=== PATIENT | female | born 1980 | race Caucasian/White ===

== ENCOUNTER 2017-09-21 08:52 | Emergency (ER) | payer MEDICARE ==
[2017-09-21 08:54] VITALS: BP 160/95; PULSE 93; RESP 20; TEMP 98.4; O2SAT 100
[2017-09-21] MEDS ORDERED: SODIUM CHLOR 0.9% 1000 ML INJ 1,000 ML IV ONE (09:29)
[2017-09-21] MEDS ORDERED: KETOROLAC TROMETHAMINE 30 MG/ML (IVP) VIAL IVP ONE (09:30)
[2017-09-21] MEDS ORDERED: PROCHLORPERAZINE INJ 10 MG/2 ML VIAL IVP ONE (09:30)
--- NOTE | 2017-09-21 09:35 | PD ---
HPI Chief Complaint: Headache Time Seen by Provider: 09:22 Travel History International Travel<30 days: No Contact w/Intl Traveler<30days: No Traveled to known affect area: No History of Present Illness HPI Examined in the presence of a female nurse at all times. This is a 37-year-old female who reports a history of migraines and epilepsy. She presents for evaluation. For the past 5 days she has had cough, myalgias, fatigue, occasional nosebleeds from the left nostril, sore throat. In addition she has had headache which she describes as piercing pain in the frontal and left parietal region which is constant, no aggravating or leading factors. This started 5 days ago and is gradually worsening. She reports a 21 year history of migraines on a monthly basis and this current headache feels like her typical migraine. Because of her additional symptoms of cough, myalgias and occasional nosebleeds, she presented here for further evaluation. She denies any nasal manipulation, denies putting any foreign bodies in her nose. She does occasionally use Flonase for seasonal allergies. She denies any objective fevers, rash, abdominal pain, nausea or vomiting, photophobia or phonophobia, dysuria, diarrhea. Denies any history of IV drug use. She has no other complaints at this time. [facility] Past Medical History Cancer: Yes (OVARIAN CANCER ) Diminished Hearing: No Headaches: Yes Migraines: Yes Seizures: Yes (EPILEPSY ) Tetanus Vaccination: Unknown Influenza Vaccination: No ?: Not Past Surgical History Hysterectomy: Yes (TOTAL) Other Surgery: Yes (LYMPH NODES REMOVAL TO L ARM /L EAR LESION REMOVAL ) Social History Alcohol Use: Yes (OCC) Tobacco Use: Yes Substance Use: Yes (POT) Allergies-Medications (Allergen,Severity, Reaction): Coded Allergies: Sulfa (Sulfonamide Antibiotics) (Verified Allergy, Unknown, 09/21/17) aspirin (Verified Allergy, Unknown, 09/21/17) diphenhydramine (Verified Allergy, Unknown, 09/21/17) hydrocodone (Verified Allergy, Unknown, 09/21/17) levofloxacin (Verified Allergy, Unknown, 09/21/17) morphine (Verified Allergy, Unknown, 09/21/17) ondansetron (Verified Allergy, Unknown, 09/21/17) penicillin G (Verified Allergy, Unknown, 09/21/17) Review of Systems Except as stated in HPI: all other systems reviewed are Neg Physical Exam Narrative GENERAL: Well-developed well-nourished female no acute distress SKIN: Warm and dry. HEAD: Atraumatic. Normocephalic. EYES: Pupils equal and round reactive to light extraocular muscles are intact. No scleral icterus. No injection or drainage. ENT: No nasal bleeding or discharge. Mucous membranes pink and moist. Tympanic membrane's appear normal without erythema or fluid level. There is no oral pharyngeal erythema or exudate. There is no nasal bleeding. There is no dried blood in the nares. NECK: Trachea midline. No JVD. No lymphadenopathy. Neck supple full range of motion. CARDIOVASCULAR: Regular rate and rhythm. No murmur appreciated. RESPIRATORY: No accessory muscle use. Clear to auscultation. Breath sounds equal bilaterally. GASTROINTESTINAL: Abdomen soft, non-tender, nondistended. Hepatic and splenic margins not palpable. MUSCULOSKELETAL: No obvious deformities. NEUROLOGICAL: Awake and alert. No obvious cranial nerve deficits. Motor grossly within normal limits. Normal speech. Data Data Last Documented VS Vital Signs Date Time Temp Pulse Resp B/P (MAP) Pulse Ox O2 Delivery O2 Flow Rate FiO2 09/21/17 11:46 99 09/21/17 09:28 Room Air 09/21/17 08:54 98.4 93 20 160/95 (116) Orders Orders Complete Blood Count With Diff (09/21/17 09:29) Basic Metabolic Panel (Bmp) (09/21/17 09:29) Iv Access Insert/Monitor (09/21/17 09:29) Ketorolac Inj (Toradol Inj) (09/21/17 09:30) Prochlorperazine Inj (Compazine Inj) (09/21/17 09:30) Sodium Chlor 0.9% 1000 Ml Inj (Ns 1000 M (09/21/17 09:29) Influenzae A/B Antigen (09/21/17 09:29) Ed Urine Pregnancytest Poc (09/21/17 09:29) Chest, Single Ap (09/21/17 ) Urinalysis - C+S If Indicated (09/21/17 10:17) Sumatriptan Succinate (Imitrex) (09/21/17 10:45) Labs Laboratory Tests Test 09/21/17 09:45 4/14/18 11:00 White Blood Count 15.4 TH/MM3 Red Blood Count 5.06 MIL/MM3 Hemoglobin 14.8 GM/DL Hematocrit 44.2 % Mean Corpuscular Volume 87.4 FL Mean Corpuscular Hemoglobin 29.3 PG Mean Corpuscular Hemoglobin Concent 33.5 % Red Cell Distribution Width 13.9 % Platelet Count 248 TH/MM3 Mean Platelet Volume 9.5 FL Neutrophils (%) (Auto) 83.1 % Lymphocytes (%) (Auto) 10.0 % Monocytes (%) (Auto) 5.2 % Eosinophils (%) (Auto) 1.2 % Basophils (%) (Auto) 0.5 % Neutrophils # (Auto) 12.8 TH/MM3 Lymphocytes # (Auto) 1.5 TH/MM3 Monocytes # (Auto) 0.8 TH/MM3 Eosinophils # (Auto) 0.2 TH/MM3 Basophils # (Auto) 0.1 TH/MM3 CBC Comment DIFF FINAL Differential Comment Blood Urea Nitrogen 9 MG/DL Creatinine 0.89 MG/DL Random Glucose 87 MG/DL Calcium Level 9.1 MG/DL Sodium Level 140 MEQ/L Potassium Level 3.8 MEQ/L Chloride Level 109 MEQ/L Carbon Dioxide Level 25.3 MEQ/L Anion Gap 6 MEQ/L Estimat Glomerular Filtration Rate 72 ML/MIN Urine Color LIGHT-YELLOW Urine Turbidity CLEAR Urine pH 5.5 Urine Specific [place] 1.003 Urine Protein NEG mg/dL Urine Glucose (UA) NEG mg/dL Urine Ketones NEG mg/dL Urine Occult Blood NEG Urine Nitrite NEG Urine Bilirubin NEG Urine Urobilinogen LESS THAN 2.0 MG/DL Urine Leukocyte Esterase NEG Urine Squamous Epithelial Cells 1 /hpf Microscopic Urinalysis Comment CULT NOT INDICATED MDM Medical Decision Making Medical Screen Exam Complete: Yes Emergency Medical Condition: Yes Medical Record Reviewed: Yes Differential Diagnosis Bronchitis, influenza, pneumonia, migraine without aura, tension headache, no evidence for meningitis Narrative Course The patient appears well. She has no meningeal signs. She has no focal neurologic deficits. Her headache is consistent with her typical migraine and will be treated as such with IV normal saline bolus, Toradol as well as Reglan. She has multiple medication allergies. In addition basic lab work, chest x- ray, influenza antigen tests have been ordered. The patient's headache persisted after the administration of fluids, Reglan and Toradol and therefore dose of Imitrex was ordered. At some point the patient abruptly decided that she wanted to leave and she left AMA prior to me being able to director counseling bureau her on her decision or discuss the results of her testing. She also apparently refused the Imitrex. Diagnosis Primary Impression: Left against medical advice Med/Other Pt SpecificInfo: No Change to Meds Disposition: 07 AGAINST MEDICAL ADVICE Condition: Stable Shiva Hutson Sep 21, 2017 09:35
--- NOTE | 2017-09-21 09:59 | RADRPT ---
EXAM DATE/TIME: 09/21/2017 09:48 [place] COMPARISON: No previous studies available for comparison. INDICATIONS : Cough, chest pain, and body aches. MEDICAL HISTORY : None. SURGICAL HISTORY : None. ENCOUNTER: Initial ACUITY: 4 - 6 days PAIN SCORE: 3/10 LOCATION: chest FINDINGS: A single view of the chest demonstrates the lungs to be symmetrically aerated without evidence of mas s, infiltrate or effusion. The cardiomediastinal contours are unremarkable. Osseous structures are intact. CONCLUSION: No acute disease. Duarte Braga MD FACR on September 21, 2017 at 9:57 Board Certified Radiologist. This report was verified electronically.
[2017-09-21 10:15] LABS: AUTOMATED NEUTROPHIL # 12.8 TH/MM3 (1.8-7.7); BASOPHIL # 0.1 TH/MM3 (0-0.2); BASOPHIL % 0.5 % (0.0-2.0); EOSINOPHIL # 0.2 TH/MM3 (0-0.4); EOSINOPHIL % 1.2 % (0.0-4.0); HEMATOCRIT 44.2 % (35.0-46.0); HEMOGLOBIN 14.8 GM/DL (11.6-15.3); LYMPHOCYTE # 1.5 TH/MM3 (1.0-4.8); MEAN CELL VOLUME 87.4 FL (80.0-100.0); MEAN CORPUSCULAR HEMOGLOBIN 29.3 PG (27.0-34.0); MEAN CORPUSCULAR HGB CONC 33.5 % (32.0-36.0); MEAN PLATELET VOLUME 9.5 FL (7.0-11.0); MONO % 5.2 % (0.0-8.0); MONOCYTE # 0.8 TH/MM3 (0-0.9); NEUT % 83.1 % (16.0-70.0); PLATELET COUNT 248 TH/MM3 (150-450); RED BLOOD COUNT 5.06 MIL/MM3 (4.00-5.30); RED CELL DISTRIBUTION WIDTH 13.9 % (11.6-17.2); WHITE BLOOD COUNT 15.4 TH/MM3 (4.0-11.0)
[2017-09-21] MEDS ORDERED: SUMAtriptan SUCCINATE 25 MG TAB PO ONE (10:45)
[2017-09-21 10:46] LABS: BICARBONATE 25.3 MEQ/L (21.0-32.0); CALCIUM 9.1 MG/DL (8.5-10.1); CREATININE 0.89 MG/DL (0.50-1.00)
[2017-09-21 11:27] LABS: BILIRUBIN, URINE NEG (NEG); BLOOD, URINE NEG (NEG); GLUCOSE,URINE NEG (NEG); KETONE, URINE NEG (NEG); NITRITE,URINE NEG (NEG); PH, URINE 5.5 (5.0-8.5); SQUAMOUS EPITHELIAL CELL URINE 1 /hpf (0-5); URINE COLOR LIGHT-YELLOW (YELLW/STRAW); URINE LEUKOCYTE ESTERASE NEG (NEG)
== END 2017-09-21 11:48 | disposition left against medical advice (07) ==
LOC: NEPD 08:52
DX: G43.909 Migraine, unspecified, not intractable, without status migrainosus (principal); G40.909 Epilepsy, unspecified, not intractable, without status epilepticus; Z72.0 Tobacco use
CPT/HCPCS: 71045; 80048; 81001; 84703; 85025; 87804; 96361; 96374; 96375; 99284; J0780; J1885; J7030

== ENCOUNTER 2017-10-10 12:11 | Emergency (ER) | payer MEDICARE ==
[2017-10-10 12:20] VITALS: BP 123/67; PULSE 87; RESP 16; TEMP 98.4; O2SAT 98
[2017-10-10] MEDS ORDERED: KEPP750T PO (12:39)
[2017-10-10] MEDS ORDERED: ADDE20 PO (12:39)
[2017-10-10] MEDS ORDERED: CLON1TAB PO (12:39)
--- NOTE | 2017-10-10 13:05 | PD ---
HPI Chief Complaint: Psychiatric Symptoms Time Seen by Provider: 12:46 Travel History International Travel<30 days: No Contact w/Intl Traveler<30days: No Traveled to known affect area: No History of Present Illness HPI 37-year-old female presents emergency department with suicidal ideation. She comes in voluntarily complaining of thoughts of her head wanting her to drive her car off the bridge. She recently has been going to [facility] for evaluation for possible leukemia or some type of tumor in her abdomen. She was there this morning having a CT scan. She also has history of ADHD treated by a psychiatrist in [place] who recently changed her meds which she feels have not been helping her. The patient is quite anxious and depressed and feels suicidal. She complains of recent left back and hip pain over the past 4 days without history of injury. She denies weakness, tingling, or numbness. No changes in her bowels or bladder. No recent fevers or chills. She denies urinary symptoms. Patient has no other medical complaints. The patient is allergic to sulfa, aspirin, diphenhydramine, levofloxacin, morphine, ondansetron, and penicillin PFSH Past Medical History Anxiety: Yes Cancer: Yes (OVARIAN, uterine and cervical) Diminished Hearing: No Headaches: Yes Migraines: Yes Seizures: Yes (EPILEPSY ) Influenza Vaccination: No ?: Not Past Surgical History Abdominal Surgery: Yes (hernia repair) Hysterectomy: Yes (TOTAL) Other Surgery: Yes (LYMPH NODES REMOVAL TO L ARM /L EAR LESION REMOVAL ) Social History Alcohol Use: No Tobacco Use: Yes (1/2 ppd) Substance Use: Yes (marijuana) Allergies-Medications (Allergen,Severity, Reaction): Coded Allergies: Sulfa (Sulfonamide Antibiotics) (Verified Allergy, Unknown, 10/10/17) aspirin (Verified Allergy, Unknown, 10/10/17) diphenhydramine (Verified Allergy, Unknown, 10/10/17) hydrocodone (Verified Allergy, Unknown, 10/10/17) levofloxacin (Verified Allergy, Unknown, 10/10/17) morphine (Verified Allergy, Unknown, 10/10/17) ondansetron (Verified Allergy, Unknown, 10/10/17) penicillin G (Verified Allergy, Unknown, 10/10/17) Reported Meds & Prescriptions Reported Meds & Active Scripts Active Reported Adderall (Amphetamine-Dextroamphetamine) 20 Mg Tab 20 Mg PO DAILY Avoid late evening doses. Space doses at least 4 to 6 hours if more than once/day dosing. Clonazepam 1 Mg Tab 1 Mg PO BID Keppra (Levetiracetam) 750 Mg Tab 750 Mg PO BID Review of Systems Except as stated in HPI: all other systems reviewed are Neg General / Constitutional: No: Fever Eyes: No: Visual changes HENT: No: Headaches Cardiovascular: No: Chest Pain or Discomfort Respiratory: No: Shortness of Breath Gastrointestinal: No: Abdominal Pain Genitourinary: No: Dysuria Musculoskeletal: Positive: Myalgias, No: Arthralgias, Limited ROM, Pain Skin: No Rash Neurologic: No: Weakness Psychiatric: Positive: Anxiety, Depression, Suicidal Ideations, No: Substance Abuse, Homicidal Ideation Endocrine: No: Polydipsia Hematologic/Lymphatic: No: Easy Bruising Physical Exam Narrative GENERAL: The patient appears anxious and sad. SKIN: Warm and dry. Normal color. Normal turgor. No rash. HEAD: Atraumatic. Normocephalic. EYES: Pupils equal and round. No scleral icterus. No injection or drainage. ENT: No nasal bleeding or discharge. Mucous membranes pink and moist. Pharynx is clear. Airways patent NECK: Trachea midline. Supple and nontender CARDIOVASCULAR: Regular rate and rhythm. RESPIRATORY: No accessory muscle use. Clear to auscultation. Breath sounds equal bilaterally. GASTROINTESTINAL: Abdomen soft, non-tender, nondistended. Hepatic and splenic margins not palpable. MUSCULOSKELETAL: Extremities without clubbing, cyanosis, or edema. No obvious deformities. Patient soft tissue tenderness over the left lower lumbar and sacroiliac regions. Range of motion is full. Negative straight leg raise pain. NEUROLOGICAL: Awake and alert. No obvious cranial nerve deficits. Motor grossly within normal limits. Five out of 5 muscle strength in the arms and legs. Normal speech. PSYCHIATRIC: Appropriate mood and affect; insight and judgment normal. Data Data Last Documented VS Vital Signs Date Time Temp Pulse Resp B/P (MAP) Pulse Ox O2 Delivery O2 Flow Rate FiO2 10/10/17 12:20 98.4 87 16 123/67 (85) 98 Orders Orders Complete Blood Count With Diff (10/10/17 12:46) Comprehensive Metabolic Panel (10/10/17 12:46) Thyroid Stimulating Hormone (10/10/17 12:46) Urinalysis - C+S If Indicated (10/10/17 12:46) Psych Screen (10/10/17 12:46) Drug Screen, Random Urine (10/10/17 12:46) Alcohol (Ethanol) (10/10/17 12:46) Hip, Uni(Ap&Lat) W Ap Pelvis (10/10/17 12:54) Acetamin-Hydrocod 325-5 Mg ([place] 5-325 (10/10/17 14:45) Labs Laboratory Tests Test 10/10/17 13:17 10/10/17 13:23 Urine Color LIGHT-YELLOW Urine Turbidity CLEAR Urine pH 7.5 Urine Specific [place] 1.032 Urine Protein NEG mg/dL Urine Glucose (UA) NEG mg/dL Urine Ketones NEG mg/dL Urine Occult Blood NEG Urine Nitrite NEG Urine Bilirubin NEG Urine Urobilinogen LESS THAN 2.0 MG/DL Urine Leukocyte Esterase NEG Urine RBC LESS THAN 1 /hpf Urine WBC LESS THAN 1 /hpf Microscopic Urinalysis Comment CULT NOT INDICATED Urine Opiates Screen NEG Urine Barbiturates Screen NEG Urine Amphetamines Screen NEG Urine Benzodiazepines Screen NEG Urine Cocaine Screen NEG Urine Cannabinoids Screen NEG White Blood Count 13.5 TH/MM3 Red Blood Count 5.18 MIL/MM3 Hemoglobin 15.5 GM/DL Hematocrit 45.1 % Mean Corpuscular Volume 87.1 FL Mean Corpuscular Hemoglobin 29.9 PG Mean Corpuscular Hemoglobin Concent 34.3 % Red Cell Distribution Width 13.9 % Platelet Count 231 TH/MM3 Mean Platelet Volume 9.2 FL Neutrophils (%) (Auto) 80.4 % Lymphocytes (%) (Auto) 15.4 % Monocytes (%) (Auto) 2.5 % Eosinophils (%) (Auto) 1.2 % Basophils (%) (Auto) 0.5 % Neutrophils # (Auto) 10.9 TH/MM3 Lymphocytes # (Auto) 2.1 TH/MM3 Monocytes # (Auto) 0.3 TH/MM3 Eosinophils # (Auto) 0.2 TH/MM3 Basophils # (Auto) 0.1 TH/MM3 CBC Comment DIFF FINAL Differential Comment Blood Urea Nitrogen 8 MG/DL Creatinine 0.73 MG/DL Random Glucose 89 MG/DL Total Protein 7.4 GM/DL Albumin 3.8 GM/DL Calcium Level 8.8 MG/DL Alkaline Phosphatase 66 U/L Aspartate Amino Transf (AST/SGOT) 22 U/L Alanine Aminotransferase (ALT/SGPT) 19 U/L Total Bilirubin 0.9 MG/DL Sodium Level 140 MEQ/L Potassium Level 4.3 MEQ/L Chloride Level 106 MEQ/L Carbon Dioxide Level 22.8 MEQ/L Anion Gap 11 MEQ/L Estimat Glomerular Filtration Rate 90 ML/MIN Thyroid Stimulating Hormone 3rd Gen 0.565 uIU/ML Ethyl Alcohol Level LESS THAN 3 MG/DL MDM Medical Decision Making Medical Screen Exam Complete: Yes Emergency Medical Condition: Yes Differential Diagnosis Anxiety. Depression. Left hip pain. Narrative Course Patient is medically stable at time of exam X-rays of the left hip and pelvis are ordered. Psychiatric labs ordered per protocol. Patient remains voluntary, however I feel she attempts to leave she should be [place] acted. X-rays of the left hip and pelvis are unremarkable per radiologist. CBC shows slight leukocytosis of 13.5, otherwise unremarkable. Chemistries are normal. TSH is normal. Tox screen is negative. Serum EtOH is less than 3. Urinalysis is unremarkable. Patient is given Lortab 5/325 for her hip pain. Patient is medically cleared for psychiatric evaluation. Condition: Stable Saurabh Wilkins October 10, 2017 13:05
--- NOTE | 2017-10-10 13:22 | RADRPT ---
EXAM DATE/TIME: 10/10/2017 13:07 [place] COMPARISON: No previous studies available for comparison. The only prior exam [facility] is a chest x-ray on 09/21/17. INDICATIONS : Left hip pain for 3 days. MEDICAL HISTORY : None. SURGICAL HISTORY : Hysterectomy. ENCOUNTER: Initial ACUITY: 3 days PAIN SCORE: 10/10 LOCATION: Left posterior hip. FINDINGS: There is contrast seen in the colon and moderately dense contrast seen within the lumen of urinary bl adder suggesting recent oral and intravenous contrast. The bony pelvic ring is grossly intact. The left hip has a normal appearance without evidence of fracture. The primary and secondary trabecular pattern of the femoral neck is intact. CONCLUSION: No evidence of recent bone injury. No significant arthropathy. Evens Sawyer MD on October 10, 2017 at 13:18 Board Certified Radiologist. This report was verified electronically.
[2017-10-10 14:03] LABS: AUTOMATED NEUTROPHIL # 10.9 TH/MM3 (1.8-7.7); BASOPHIL # 0.1 TH/MM3 (0-0.2); BASOPHIL % 0.5 % (0.0-2.0); EOSINOPHIL # 0.2 TH/MM3 (0-0.4); EOSINOPHIL % 1.2 % (0.0-4.0); HEMATOCRIT 45.1 % (35.0-46.0); HEMOGLOBIN 15.5 GM/DL (11.6-15.3); LYMPH % 15.4 % (9.0-44.0); LYMPHOCYTE # 2.1 TH/MM3 (1.0-4.8); MEAN CELL VOLUME 87.1 FL (80.0-100.0); MEAN CORPUSCULAR HEMOGLOBIN 29.9 PG (27.0-34.0); MEAN CORPUSCULAR HGB CONC 34.3 % (32.0-36.0); MEAN PLATELET VOLUME 9.2 FL (7.0-11.0); MONO % 2.5 % (0.0-8.0); MONOCYTE # 0.3 TH/MM3 (0-0.9); NEUT % 80.4 % (16.0-70.0); PLATELET COUNT 231 TH/MM3 (150-450); RED BLOOD COUNT 5.18 MIL/MM3 (4.00-5.30); RED CELL DISTRIBUTION WIDTH 13.9 % (11.6-17.2); WHITE BLOOD COUNT 13.5 TH/MM3 (4.0-11.0)
[2017-10-10 14:06] LABS: BILIRUBIN, URINE NEG (NEG); BLOOD, URINE NEG (NEG); GLUCOSE,URINE NEG (NEG); KETONE, URINE NEG (NEG); NITRITE,URINE NEG (NEG); PH, URINE 7.5 (5.0-8.5); URINE COLOR LIGHT-YELLOW (YELLW/STRAW); URINE LEUKOCYTE ESTERASE NEG (NEG)
[2017-10-10 14:25] LABS: ALBUMIN 3.8 GM/DL (3.4-5.0); ALT (GPT) 19 U/L (10-53); AST (GOT) 22 U/L (15-37); BICARBONATE 22.8 MEQ/L (21.0-32.0); BLOOD UREA NITROGEN 8 MG/DL (7-18); CALCIUM 8.8 MG/DL (8.5-10.1); CHLORIDE 106 MEQ/L (98-107); CREATININE 0.73 MG/DL (0.50-1.00); GLOMERULAR FILTRATION RATE 90 ML/MIN (>89); GLUCOSE,RANDOM 89 MG/DL (74-106); SODIUM (NA) 140 MEQ/L (136-145)
[2017-10-10 14:34] LABS: ALKALINE PHOSPHATASE 66 U/L (45-117); TOTAL BILIRUBIN ADULT 0.9 MG/DL (0.2-1.0); TOTAL PROTEIN 7.4 GM/DL (6.4-8.2)
[2017-10-10] MEDS ORDERED: ACETAMINOPHEN/HYDROcodone 325 MG/5 MG TAB PO ONE (14:45)
[2017-10-10 17:55] VITALS: BP 133/97; PULSE 79; RESP 18; O2SAT 98
--- NOTE | 2017-10-10 18:31 | PD ---
Physical Exam Date Seen by Provider: October 10, 2017 Time Seen by Provider: 18:25 Narrative 37-year-old female previously medically cleared for psychiatric evaluation, has been seen and evaluated by psychiatric staff and deemed to be psychiatrically safe and stable for discharge at this time. Patient remains medically stable for discharge. Follow-up will be based on psychiatric note. Data Data Last Documented VS Vital Signs Date Time Temp Pulse Resp B/P (MAP) Pulse Ox O2 Delivery O2 Flow Rate FiO2 10/10/17 17:55 79 18 133/97 (109) 98 Room Air 10/10/17 12:20 98.4 Orders Orders Complete Blood Count With Diff (10/10/17 12:46) Comprehensive Metabolic Panel (10/10/17 12:46) Thyroid Stimulating Hormone (10/10/17 12:46) Urinalysis - C+S If Indicated (10/10/17 12:46) Psych Screen (10/10/17 12:46) Drug Screen, Random Urine (10/10/17 12:46) Alcohol (Ethanol) (10/10/17 12:46) Hip, Uni(Ap&Lat) W Ap Pelvis (10/10/17 12:54) Acetamin-Hydrocod 325-5 Mg ([place] 5-325 (10/10/17 14:45) Diet Regular Basic (10/10/17 Dinner) Labs Laboratory Tests Test 10/10/17 13:17 10/10/17 13:23 Urine Color LIGHT-YELLOW Urine Turbidity CLEAR Urine pH 7.5 Urine Specific [place] 1.032 Urine Protein NEG mg/dL Urine Glucose (UA) NEG mg/dL Urine Ketones NEG mg/dL Urine Occult Blood NEG Urine Nitrite NEG Urine Bilirubin NEG Urine Urobilinogen LESS THAN 2.0 MG/DL Urine Leukocyte Esterase NEG Urine RBC LESS THAN 1 /hpf Urine WBC LESS THAN 1 /hpf Microscopic Urinalysis Comment CULT NOT INDICATED Urine Opiates Screen NEG Urine Barbiturates Screen NEG Urine Amphetamines Screen NEG Urine Benzodiazepines Screen NEG Urine Cocaine Screen NEG Urine Cannabinoids Screen NEG White Blood Count 13.5 TH/MM3 Red Blood Count 5.18 MIL/MM3 Hemoglobin 15.5 GM/DL Hematocrit 45.1 % Mean Corpuscular Volume 87.1 FL Mean Corpuscular Hemoglobin 29.9 PG Mean Corpuscular Hemoglobin Concent 34.3 % Red Cell Distribution Width 13.9 % Platelet Count 231 TH/MM3 Mean Platelet Volume 9.2 FL Neutrophils (%) (Auto) 80.4 % Lymphocytes (%) (Auto) 15.4 % Monocytes (%) (Auto) 2.5 % Eosinophils (%) (Auto) 1.2 % Basophils (%) (Auto) 0.5 % Neutrophils # (Auto) 10.9 TH/MM3 Lymphocytes # (Auto) 2.1 TH/MM3 Monocytes # (Auto) 0.3 TH/MM3 Eosinophils # (Auto) 0.2 TH/MM3 Basophils # (Auto) 0.1 TH/MM3 CBC Comment DIFF FINAL Differential Comment Blood Urea Nitrogen 8 MG/DL Creatinine 0.73 MG/DL Random Glucose 89 MG/DL Total Protein 7.4 GM/DL Albumin 3.8 GM/DL Calcium Level 8.8 MG/DL Alkaline Phosphatase 66 U/L Aspartate Amino Transf (AST/SGOT) 22 U/L Alanine Aminotransferase (ALT/SGPT) 19 U/L Total Bilirubin 0.9 MG/DL Sodium Level 140 MEQ/L Potassium Level 4.3 MEQ/L Chloride Level 106 MEQ/L Carbon Dioxide Level 22.8 MEQ/L Anion Gap 11 MEQ/L Estimat Glomerular Filtration Rate 90 ML/MIN Thyroid Stimulating Hormone 3rd Gen 0.565 uIU/ML Ethyl Alcohol Level LESS THAN 3 MG/DL MDM Medical Record Reviewed: Yes Supervised Visit with DARCY: Yes Narrative Course 37-year-old female previously medically cleared for psychiatric evaluation, has been seen and evaluated by psychiatric staff and deemed to be psychiatrically safe and stable for discharge at this time. Patient remains medically stable for discharge. Follow-up will be based on psychiatric note. Patient Instructions: General Instructions Disposition: DISCHARGE HOME Condition: Stable Saurabh Wilkins October 10, 2017 18:30
--- NOTE | 2017-10-10 18:48 | PD ---
History of Present Illness Chief Complaint: Psychiatric Symptoms Time Seen by Provider: 17:30 Travel History International Travel<30 Days: No Contact w/Intl Traveler<30days: No Known affected area: No Legal Status Legal Status: Voluntary History of Present Illness: History of Present Illness HPI 37-year-old, single female with history of anxiety disorder, ADD, alcohol use disorder who presents to emergency department voluntarily for psychiatric evaluation. She reports that in September 27 her medications got changed from Xanax 1 mg twice a day to Klonopin 1 mg twice a day and that since that time she has not been feeling well ' feeling pissed off at the world" and having thoughts of driving her car off the bridge. She also reports that 3 weeks ago she lost her housing and has been staying in her car. The patient has not made any attempt to harm herself. She also admits to excessive drinking , to the present point of passing out in my car, at least one time per week. Her boyfriend who is in recovery prompted her to seek treatment for her excessive use of alcohol. Electronic medical record is reviewed. No previous contact with [facility] psychiatry. Current toxicology is negative for any substances including benzos. Patient is seen with JERMAIN Garcia. Awake, alert, engaging and cooperative. Dressed in hospital attire and maintaining basic hygiene. Speech is clear, logical and goal directed. Of normal rate and tone. Mood is anxious. Affect tearful at times. There is no evidence of hallucinations, no delusions, no paranoia. Attention and concentration are adequate. Denies current suicidal ideation, intent or plan. Sleep is fair. In terms of psychiatric history. She reports that she has been taken Xanax 1 mg twice a day for the past 15 years. This medication is also always been prescribed by her PCP and she has never seen a psychiatrist. Last month she saw a different provider at her doctor's office who changed the Xanax to Klonopin. She states the Klonopin makes her feel sedated initially. The patient tells me she takes her medication as prescribed. No previous suicide attempt. No history of self-injurious behavior. PFSH Past Medical History Anxiety: Yes Cancer: Yes (OVARIAN, uterine and cervical) Diminished Hearing: No Headaches: Yes Migraines: Yes Seizures: Yes (EPILEPSY ) Influenza Vaccination: No ?: Not Past Surgical History Abdominal Surgery: Yes (hernia repair) Hysterectomy: Yes (TOTAL) Other Surgery: Yes (LYMPH NODES REMOVAL TO L ARM /L EAR LESION REMOVAL ) Psychiatric History Psychiatric History Hx Psychiatric Treatment: PT DENIES any. Has been prescribed anxiolytics 15 years by her PCP. No history of suicide attempt. No history of self-injurious behavior. History of Inpatient Treatment: No Guns or firearms in home: No Social History Single, has 3 adult children. Has a relationship 4 years. She is on disability. Patient has been living in her car for the past 3 weeks. Hx Alcohol Use: Yes (Admits to binge drinking one time a week.) Hx Tobacco Use: Yes (06/11 ppd) Hx Substance Use: Yes (THC FOR SEIZURES) Substance Use Type: Marijuana Hx of Substance Use Treatment: No Family Psychiatric History Negative Allergies-Medications (Allergen,Severity, Reaction): Coded Allergies: Sulfa (Sulfonamide Antibiotics) (Verified Allergy, Unknown, 10/10/17) aspirin (Verified Allergy, Unknown, 10/10/17) diphenhydramine (Verified Allergy, Unknown, 10/10/17) hydrocodone (Verified Allergy, Unknown, 10/10/17) levofloxacin (Verified Allergy, Unknown, 10/10/17) morphine (Verified Allergy, Unknown, 10/10/17) ondansetron (Verified Allergy, Unknown, 10/10/17) penicillin G (Verified Allergy, Unknown, 10/10/17) Reported Meds & Prescriptions Reported Meds & Active Scripts Active Reported Adderall (Amphetamine-Dextroamphetamine) 20 Mg Tab 20 Mg PO DAILY Avoid late evening doses. Space doses at least 4 to 6 hours if more than once/day dosing. Clonazepam 1 Mg Tab 1 Mg PO BID Keppra (Levetiracetam) 750 Mg Tab 750 Mg PO BID Review of Systems Gastrointestinal: COMPLAINS OF: Abdominal pain Psychiatric: COMPLAINS OF: Anxiety Mental Status Examination Appearance: Appropriate Consciousness: Alert Orientation: x4 Motor Activity: Normal gait Speech: Unremarkable Language: Adequate Fund of Knowledge: Adequate Attention and Concentration: Adequate Memory: Unremarkable Mood: Anxious Affect: Appropriate Thought Process & Associations: Intact, Logical, Goal directed Thought Content: Appropriate Hallucination Type: None Delusion Type: None Suicidal Ideation: No Suicidal Plan: No Suicidal Intention: No Homicidal Ideation: No Homicidal Plan: No Homicidal Intention: No Insight: Fair Judgment: Adequate MDM Medical Decision Making Medical Record Reviewed: Yes Assessment/Plan 37-year-old female with history of anxiety disorder, ADD, alcohol use disorder who presents to the ED on a voluntary status seeking a psychiatric evaluation and reporting suicidal ideation with thoughts of wanting to drive her car off a bridge. Patient reported that she experienced these thoughts 3 weeks ago when she lost her housing and has been living in her car. She also states that she has had increased anxiety since her Xanax was switched to Klonopin. The patient was advised of her options including hospitalization on our inpatient psychiatric unit for medication adjustment versus outpatient care. She does not meet criteria for involuntary hospitalization. She wishes to seek treatment on an outpatient basis. The patient contracts for safety and states that she just has a new granddaughter and would never hurt herself. She is also future oriented she is working to get emergency housing and has been placed on a waiting list. She is also working with her boyfriend to find an apartment to move in together. He has been talking to her about her excessive use of alcohol and she states" I wanted to hear it from a professional that even though I only drink once a week it is a problem". I have counseled her on the contraindication of mixing alcohol with her medication. The patient is cognitively intact. She contracts for safety as a general safety plan which also includes returning to the emergency department if any changes in her present condition. She will follow up with her PCP. She is encouraged to attend outpatient counseling. Patient is psychiatrically clear for discharge from the ED Orders Orders Complete Blood Count With Diff (10/10/17 12:46) Comprehensive Metabolic Panel (10/10/17 12:46) Thyroid Stimulating Hormone (10/10/17 12:46) Urinalysis - C+S If Indicated (10/10/17 12:46) Psych Screen (10/10/17 12:46) Drug Screen, Random Urine (10/10/17 12:46) Alcohol (Ethanol) (10/10/17 12:46) Hip, Uni(Ap&Lat) W Ap Pelvis (10/10/17 12:54) Acetamin-Hydrocod 325-5 Mg ([place] 5-325 (10/10/17 14:45) Diet Regular Basic (10/10/17 Dinner) Results Vital Signs Date Time Temp Pulse Resp B/P (MAP) Pulse Ox O2 Delivery O2 Flow Rate FiO2 10/10/17 17:55 79 18 133/97 (109) 98 Room Air 10/10/17 12:20 98.4 87 16 123/67 (85) 98 Laboratory Tests Test 10/10/17 13:17 10/10/17 13:23 Urine Color LIGHT-YELLOW Urine Turbidity CLEAR Urine pH 7.5 Urine Specific [place] 1.032 Urine Protein NEG Urine Glucose (UA) NEG Urine Ketones NEG Urine Occult Blood NEG Urine Nitrite NEG Urine Bilirubin NEG Urine Urobilinogen LESS THAN 2.0 Urine Leukocyte Esterase NEG Urine RBC LESS THAN 1 Urine WBC LESS THAN 1 Microscopic Urinalysis Comment CULT NOT INDICATED Urine Opiates Screen NEG Urine Barbiturates Screen NEG Urine Amphetamines Screen NEG Urine Benzodiazepines Screen NEG Urine Cocaine Screen NEG Urine Cannabinoids Screen NEG White Blood Count 13.5 Red Blood Count 5.18 Hemoglobin 15.5 Hematocrit 45.1 Mean Corpuscular Volume 87.1 Mean Corpuscular Hemoglobin 29.9 Mean Corpuscular Hemoglobin Concent 34.3 Red Cell Distribution Width 13.9 Platelet Count 231 Mean Platelet Volume 9.2 Neutrophils (%) (Auto) 80.4 Lymphocytes (%) (Auto) 15.4 Monocytes (%) (Auto) 2.5 Eosinophils (%) (Auto) 1.2 Basophils (%) (Auto) 0.5 Neutrophils # (Auto) 10.9 Lymphocytes # (Auto) 2.1 Monocytes # (Auto) 0.3 Eosinophils # (Auto) 0.2 Basophils # (Auto) 0.1 CBC Comment DIFF FINAL Differential Comment Blood Urea Nitrogen 8 Creatinine 0.73 Random Glucose 89 Total Protein 7.4 Albumin 3.8 Calcium Level 8.8 Alkaline Phosphatase 66 Aspartate Amino Transf (AST/SGOT) 22 Alanine Aminotransferase (ALT/SGPT) 19 Total Bilirubin 0.9 Sodium Level 140 Potassium Level 4.3 Chloride Level 106 Carbon Dioxide Level 22.8 Anion Gap 11 Estimat Glomerular Filtration Rate 90 Thyroid Stimulating Hormone 3rd Gen 0.565 Ethyl Alcohol Level LESS THAN 3 Diagnosis Primary Impression: Generalized anxiety disorder Psychiatrically Cleared: Yes Med/ Other Pt Specific Info: No Change to Meds Disposition: 01 DISCHARGE HOME Condition: Stable Kailey Harding October 10, 2017 18:48
== END 2017-10-10 18:50 | disposition home or self-care (01) ==
LOC: NEPD 12:11 → NEPJ 18:50
DX: F41.1 Generalized anxiety disorder (principal); G40.909 Epilepsy, unspecified, not intractable, without status epilepticus; M25.552 Pain in left hip
CPT/HCPCS: 73502; 80053; 80307; 81001; 84443; 85025; 99284

== ENCOUNTER 2017-11-26 07:35 | Emergency (ER) | payer MEDICARE, MEDICAID ==
[~2017-11-26] VITALS: Ht 162.6 cm; Wt 72.0 kg
[~2017-11-26 07:35] MED LIST: ADDE20 PO; CLON1TAB PO; KEPP750T PO
[2017-11-26 07:40] VITALS: BP 127/67; PULSE 82; RESP 16; TEMP 98.6; O2SAT 100
[2017-11-26] MEDS ORDERED: PROPARACAINE HCL 0.5% OPHT SOLN 15 ML BTL RIGHT EYE ONE (08:15)
--- NOTE | 2017-11-26 08:36 | PD ---
HPI Chief Complaint: Eye Problems/Injury Time Seen by Provider: 08:11 Travel History International Travel<30 days: No Contact w/Intl Traveler<30days: No Traveled to known affect area: No History of Present Illness HPI 37-year-old female presents to the emergency department with complaint of right eye pain, blurry vision, and drainage for 3 days. Denies injury or foreign body. She does wear contact lenses and removed some daily; she has not had a contact lens in her right eye 2 days. No one else with similar symptoms. Denies eye itchiness. Denies fever, vomiting. Reports photophobia. Went to her doctor yesterday and was told to come to the ER for evaluation. Rates pain /. Has tried hot and cold compresses, and ibuprofen for symptom management. Worse with eye movement. Described as stinging sensation. No known relieving factors. Primary care provider is at [facility]. Allergies as listed on the chart. History of epilepsy, spinal stenosis, scoliosis, left-sided nerve damage. Has no other medical complaints. No other modifying factors or associated signs and symptoms. PFSH Past Medical History Anxiety: Yes Cancer: Yes (OVARIAN, uterine and cervical) Diminished Hearing: No Headaches: Yes Migraines: Yes Seizures: Yes (EPILEPSY ) Tetanus Vaccination: < 5 Years ?: Not Past Surgical History Abdominal Surgery: Yes (hernia repair) Hysterectomy: Yes Other Surgery: Yes (LYMPH NODES REMOVAL TO L ARM /L EAR LESION REMOVAL ) Social History Alcohol Use: Yes (Admits to binge drinking one time a week.) Tobacco Use: Yes (1/2 ppd) Substance Use: Yes (THC FOR SEIZURES) Allergies-Medications (Allergen,Severity, Reaction): Coded Allergies: Sulfa (Sulfonamide Antibiotics) (Verified Allergy, Unknown, 11/26/17) Tetanus Vaccines and Toxoid (Verified Allergy, Unknown, 11/26/17) aspirin (Verified Allergy, Unknown, 11/26/17) diphenhydramine (Verified Allergy, Unknown, 11/26/17) levofloxacin (Verified Allergy, Unknown, 11/26/17) morphine (Verified Allergy, Unknown, 11/26/17) ondansetron (Verified Allergy, Unknown, 11/26/17) penicillin G (Verified Allergy, Unknown, 11/26/17) Reported Meds & Prescriptions Reported Meds & Active Scripts Active Reported Adderall (Amphetamine-Dextroamphetamine) 20 Mg Tab 20 Mg PO DAILY Avoid late evening doses. Space doses at least 4 to 6 hours if more than once/day dosing. Clonazepam 1 Mg Tab 1 Mg PO BID Keppra (Levetiracetam) 750 Mg Tab 750 Mg PO BID Review of Systems Except as stated in HPI: all other systems reviewed are Neg Physical Exam Narrative GENERAL: Well-nourished, well-developed female patient, in no acute distress SKIN: Warm and dry. HEAD: Atraumatic. Normocephalic. EYES: Pupils equal and round at 3 mm with brisk reaction. PERRLA. EOMI. Visual acuity left 20/50 with corrective lenses; unable to assess right eye. Right lid eversion with no foreign body noted. Right eye with scleral erythema and without lid edema. No orbital tenderness, erythema or cellulitis. Right eye with photophobia. No consensual photophobia. No scleral icterus. No drainage. Vincent lamp exam unremarkable. Tonometry pressure of right eye 22; left eye 25. ENT: Mucosa pink and moist. Airway patent. NECK: Trachea midline. CARDIOVASCULAR: Regular rate. RESPIRATORY: No accessory muscle use. GASTROINTESTINAL: Flat. NEUROLOGICAL: Awake and alert. Oriented 3. No obvious cranial nerve deficits. Motor grossly within normal limits. Normal speech. PSYCHIATRIC: Appropriate mood and affect; insight and judgment normal. Data Data Last Documented VS Vital Signs Date Time Temp Pulse Resp B/P (MAP) Pulse Ox O2 Delivery O2 Flow Rate FiO2 11/26/17 09:10 73 18 105/72 (83) 98 11/26/17 07:40 98.6 Orders Orders Proparacaine 0.5% Opth Soln (Alcaine 0.5 (11/26/17 08:15) Ed Discharge Order (11/26/17 09:00) [facility] Medical Decision Making Medical Screen Exam Complete: Yes Emergency Medical Condition: Yes Medical Record Reviewed: Yes Differential Diagnosis Corneal abrasion, acute angle glaucoma, conjunctivitis Narrative Course Eye exam unremarkable, except scleral erythema and unable to assess visual acuity. Patient says without her contact lens and she cannot even see the "E" on the Snellen chart. Call placed to regulatory affairs strategy specialist sustainability consultant. [phone]: I spoke with Dr. Duff, regulatory affairs strategy specialist and she would like the patient to call and make an appointment to be seen in her office today. Patient provided Dr. Duff's contact information and was told to call the office to make an appointment upon leaving the ER. Patient verbalized understanding and agreement. Instructed patient to follow up with primary care provider. Patient verbalizes understanding and agreement with treatment plan. Patient is medically cleared and stable for discharge. Discussed reasons to return to the emergency department. Patient agrees with treatment plan. The patients vital signs are stable and the patient is stable for outpatient follow-up and treatment. Patient discharged home, stable and in no acute distress. Diagnosis Primary Impression: Acute right eye pain Referrals: Sparkle Duff MDchairlift operator Primary Care Physician Patient Instructions: Eye Pain (ED), General Instructions Additional Instructions: Call and make an appointment with Dr. Sparkle Duff, regulatory affairs strategy specialist, when you leave the ER; her contact information is in your discharge instructions Med/Other Pt SpecificInfo: No Change to Meds, No Meds Exist/No RX given Disposition: 01 DISCHARGE HOME Condition: Stable Shaina Espinosa Nov 26, 2017 08:36
[2017-11-26 09:10] VITALS: BP 105/72
== END 2017-11-26 09:12 | disposition home or self-care (01) ==
LOC: NEPD 07:35
DX: H57.11 Ocular pain, right eye (principal); M41.9 Scoliosis, unspecified; F41.9 Anxiety disorder, unspecified; F17.200 Nicotine dependence, unspecified, uncomplicated; Z85.43 Personal history of malignant neoplasm of ovary; Z86.69 Personal history of other diseases of the nervous system and sense organs; Z79.899 Other long term (current) drug therapy; Z88.2 Allergy status to sulfonamides; Z88.6 Allergy status to analgesic agent; Z88.5 Allergy status to narcotic agent; Z88.0 Allergy status to penicillin; Z88.8 Allergy status to other drugs, medicaments and biological substances
CPT/HCPCS: 99282